=== PATIENT | female | born 1975 | race American Indian/Alaskan Native ===

== ENCOUNTER 2020-02-26 03:32 | Emergency (ER) | payer MEDICAID, OTHER ==
[2020-02-26 04:17] VITALS: BP 166/97
[2020-02-26] MEDS ORDERED: ALBUTEROL 2.5 MG/3 ML NEBU IH ONE ×2 (04:30→04:34)
[2020-02-26] MEDS ORDERED: IPRATROPIUM 0.02% NEBU 2.5 ML IH ONE ×2 (04:30→04:34)
[2020-02-26] MEDS ORDERED: dexAMETHasone 20 MG/5 ML VIAL IM ONE (05:35)
--- NOTE | 2020-02-26 06:25 | Emergency Department Report ---
- General Chief Complaint: Adult Asthma Stated Complaint: SOB Source: patient Mode of arrival: Ambulatory Limitations: No Limitations - History of Present Illness Initial Comments: Patient is a 44-year-old -[place] female with a history of morbid obesity, hypertension and asthma who presents to the ED with complaint of acute onset persistent nasal and sinus congestion, frontal sinus pressure, persistent dry cough, persistent wheezing and shortness of breath for the last 2 weeks, worse in the last 5 days. Patient states that she has been using her albuterol inhaler with no relief. Patient states that she also completed a course of azithromycin but that this did not help control her symptoms. Patient denies fever, chills, nausea, vomiting, diarrhea, dizziness, syncope, chest pain, abdominal pain, headache, or sore throat. MD Complaint: cough, rhinorrhea, nasal congestion, sinus pain -: Sudden, week(s) (2) Severity: moderate Severity scale (0 -10): 6 Quality: sharp, aching Consistency: constant Improves With: nothing Worsens With: nothing Associated Symptoms: denies other symptoms, headache, rhinorrhea, nasal congestion, cough, shortness of breath. denies: fever, myalgias, diaphoresis, chest pain, abdominal pain, nausea, vomiting, diarrhea, dysuria, rash, confusion, weight loss, epistaxis, hoarseness, ear pain Treatments Prior to Arrival: none - Related Data Home Medications Medication Instructions Recorded Confirmed Last Taken ALBUTEROL NEB's [Proventil 0.083%] 2.5 mg IH TID PRN 03/20/13 03/20/13 03/20/13 13:30 Albuterol Mdi (or & Nicu Only) 2 puff IH QID PRN 03/20/13 03/20/13 03/20/13 17:50 [Proair] Cholecalciferol (Vitamin D3) 5,000 unit PO 1XW 03/20/13 03/20/13 03/19/13 12:00 [Vitamin D] Fluticasone Propionate [Flovent 1 puff IH DAILY 03/20/13 03/20/13 03/20/13 08:00 Diskus] amLODIPine [Norvasc] 5 mg PO DAILY 03/20/13 03/20/13 03/19/13 08:30 Previous Rx's Medication Instructions Recorded Last Taken Type Albuterol Sulfate [Ventolin HFA] 2 puff IH Q4H PRN #1 hfa.aer.ad 03/20/13 Unknown Rx Cefdinir 300 mg PO BID #20 capsule 03/20/13 Unknown Rx Prednisone 60 mg PO QDAY #15 tablet 03/20/13 Unknown Rx ALBUTEROL NEB's [Proventil 0.083% 3 ml IH Q6H PRN #75 ml 02/26/20 Unknown Rx NEBS] Benzonatate [Tessalon Perles] 100 mg PO Q8HR #30 capsule 02/26/20 Unknown Rx Cetirizine HCl [Zyrtec 10mg tab] 10 mg PO DAILY #30 tablet 02/26/20 Unknown Rx DOXYCYCLINE Hyclate [Vibramycin 100 mg PO Q12HR #20 capsule 02/26/20 Unknown Rx CAP] Prednisone [predniSONE 10 mg 10 mg PO .TAPER #21 tab.ds.pk 02/26/20 Unknown Rx (6-Day Pack, 21 Tabs)] Allergies Allergy/AdvReac Type Severity Reaction Status Date / Time No Known Allergies Allergy Unverified 03/20/13 19:49 ED Review of Systems ROS: Stated complaint: SOB Other details as noted in HPI Constitutional: denies: chills, fever Eyes: denies: eye pain, eye discharge, vision change ENT: congestion. denies: ear pain, throat pain Respiratory: cough, shortness of breath, wheezing Cardiovascular: denies: chest pain, palpitations Endocrine: no symptoms reported Gastrointestinal: denies: abdominal pain, nausea, vomiting, diarrhea, constipation, hematemesis, hematochezia Genitourinary: denies: urgency, dysuria, discharge Musculoskeletal: denies: back pain, joint swelling, arthralgia Skin: denies: rash, lesions Neurological: denies: headache, weakness, paresthesias Psychiatric: denies: anxiety, depression Hematological/Lymphatic: denies: easy bleeding, easy bruising ED Past Medical Hx - Past Medical History Previous Medical History?: Yes Hx Hypertension: Yes Hx Asthma: Yes Additional medical history: Morbid Obesity - Surgical History Past Surgical History?: Yes Additional Surgical History: Tubal - Social History Smoking Status: Current Every Day Smoker Substance Use Type: None - Medications Home Medications: Home Medications Medication Instructions Recorded Confirmed Last Taken Type ALBUTEROL NEB's [Proventil 0.083%] 2.5 mg IH TID PRN 03/20/13 03/20/13 03/20/13 13:30 History Albuterol Mdi (or & Nicu Only) 2 puff IH QID PRN 03/20/13 03/20/13 03/20/13 17:50 History [Proair] Albuterol Sulfate [Ventolin HFA] 2 puff IH Q4H PRN #1 hfa.aer.ad 03/20/13 Unknown Rx Cefdinir 300 mg PO BID #20 capsule 03/20/13 Unknown Rx Cholecalciferol (Vitamin D3) 5,000 unit PO 1XW 03/20/13 03/20/13 03/19/13 12:00 History [Vitamin D] Fluticasone Propionate [Flovent 1 puff IH DAILY 03/20/13 03/20/13 03/20/13 08:00 History Diskus] Prednisone 60 mg PO QDAY #15 tablet 03/20/13 Unknown Rx amLODIPine [Norvasc] 5 mg PO DAILY 03/20/13 03/20/13 03/19/13 08:30 History ALBUTEROL NEB's [Proventil 0.083% 3 ml IH Q6H PRN #75 ml 02/26/20 Unknown Rx NEBS] Benzonatate [Tessalon Perles] 100 mg PO Q8HR #30 capsule 02/26/20 Unknown Rx Cetirizine HCl [Zyrtec 10mg tab] 10 mg PO DAILY #30 tablet 02/26/20 Unknown Rx DOXYCYCLINE Hyclate [Vibramycin 100 mg PO Q12HR #20 capsule 02/26/20 Unknown Rx CAP] Prednisone [predniSONE 10 mg 10 mg PO .TAPER #21 tab.ds.pk 02/26/20 Unknown Rx (6-Day Pack, 21 Tabs)] ED Physical Exam - General Limitations: No Limitations General appearance: alert, in no apparent distress - Head Head exam: Present: atraumatic, normocephalic, normal inspection - Eye Eye exam: Present: normal appearance, PERRL, EOMI Pupils: Present: normal accommodation - ENT ENT exam: Present: normal orophraynx, mucous membranes moist, TM's normal bilaterally, normal external ear exam, other (Grossly congested nasal passages) - Neck Neck exam: Present: normal inspection, full ROM. Absent: tenderness, meningismus, lymphadenopathy, thyromegaly - Respiratory Respiratory exam: Present: wheezes (Mildly diffuse coarse wheezes throughout). Absent: respiratory distress, rales, rhonchi, stridor, chest wall tenderness, accessory muscle use, decreased breath sounds - Cardiovascular Cardiovascular Exam: Present: regular rate, normal rhythm, normal heart sounds. Absent: systolic murmur, diastolic murmur, rubs, gallop - GI/Abdominal GI/Abdominal exam: Present: soft, normal bowel sounds. Absent: distended, guarding, rebound, hyperactive bowel sounds, hypoactive bowel sounds, organomegaly, mass - Extremities Exam Extremities exam: Present: normal inspection, full ROM, normal capillary refill - Back Exam Back exam: Present: normal inspection, full ROM. Absent: CVA tenderness (L), muscle spasm, paraspinal tenderness, vertebral tenderness - Neurological Exam Neurological exam: Present: alert, oriented X3, CN II-XII intact, normal gait, reflexes normal - Psychiatric Psychiatric exam: Present: normal affect, normal mood - Skin Skin exam: Present: warm, dry, intact, normal color. Absent: rash ED Course Vital Signs 02/26/20 02/26/20 02/26/20 04:09 04:17 04:35 Temperature 98.1 F Pulse Rate 84 Pulse Rate [ 88 Bilateral Throughout] Respiratory 20 Rate Respiratory 20 Rate [Bilateral Throughout] Blood Pressure 166/97 O2 Sat by Pulse 98 Oximetry ED Medical Decision Making - Radiology Data Radiology results: report reviewed, image reviewed Chest x-ray shows no acute cardiopulmonary abnormalities or pneumonitis. - Medical Decision Making This is a 44-year-old -[place] female with a history of morbid obesity, hypertension and asthma who presents to the ED with complaint of acute onset persistent nasal and sinus congestion, frontal sinus pressure, persistent dry cough, persistent wheezing and shortness of breath for the last 2 weeks, worse in the last 5 days. Patient states that she has been using her albuterol inhaler with no relief. Patient states that she also completed a course of azithromycin but that this did not help control her symptoms. In the ED, patient is alert and oriented x3 and is not in distress. Patient was treated in the ED with DuoNeb and dexamethasone injection. Chest x-ray shows no acute cardiopulmonary abnormalities or pneumonitis. On reevaluation, patient wheezing and shortness of breath resolved with treatment. Patient will discharge home on medications and advised to follow-up with her primary care physician in 5 to 7 days for reevaluation or have the patient return to the ED immediately if symptoms get worse. - Differential Diagnosis Pneumonia; bronchitis; asthma; URI; pharyngitis; reactive airway disease Critical care attestation.: If time is entered above; I have spent that time in minutes in the direct care of this critically ill patient, excluding procedure time. ED Disposition Clinical Impression: Acute bronchitis with asthma with acute exacerbation, Acute upper respiratory infection, Shortness of breath Disposition: DC- TO HOME OR SELFCARE Is pt being admited?: No Does the pt Need Aspirin: No Condition: Stable Instructions: Acute Bronchitis (ED), Asthma (ED), Upper Respiratory Infection (ED) Additional Instructions: Take all medications with food, drink plenty of fluids and follow-up with your primary care physician in 5 to 7 days for reevaluation. Return to the ED immediately if symptoms get worse. Prescriptions: Prednisone [predniSONE 10 mg (6-Day Pack, 21 Tabs)] 10 mg PO .TAPER #21 tab.ds.pk ALBUTEROL NEB's [Proventil 0.083% NEBS] 3 ml IH Q6H PRN #75 ml PRN Reason: Wheezing Benzonatate [Tessalon Perles] 100 mg PO Q8HR #30 capsule DOXYCYCLINE Hyclate [Vibramycin CAP] 100 mg PO Q12HR #20 capsule Cetirizine HCl [Zyrtec 10mg tab] 10 mg PO DAILY #30 tablet Referrals: [facility] [Provider Group] - 3-5 Days Forms: Work/School Release Form(ED) Time of Disposition: 06:34 Print Language: [id number]
--- NOTE | 2020-02-26 07:07 | XRay Report ---
CHEST 1 VIEW INDICATION: cough COMPARISON: 03/20/2013 FINDINGS: Support devices: None Heart: Normal Lungs/Pleura: No acute pulmonary or pleural findings. IMPRESSION: 1. No acute disease and no interval change. Signer Name: Chong Jackson MD Signed: 02/26/2020 7:02 AM Workstation Name: [id number]
== END 2020-02-26 07:01 | disposition home or self-care (01) ==
LOC: ED 03:32
DX: J45.901 Unspecified asthma with (acute) exacerbation (principal); J06.9 Acute upper respiratory infection, unspecified; R06.02 Shortness of breath; I10 Essential (primary) hypertension; F17.200 Nicotine dependence, unspecified, uncomplicated; Z98.51 Tubal ligation status; Z79.899 Other long term (current) drug therapy
CPT/HCPCS: 71045; 94640; 96372; 99283; J1100; 94644